=== PATIENT | male | born 1995 | race African-American/Black ===

== ENCOUNTER 2019-05-29 13:01 | Emergency (ER) | payer OTHER ==
[2019-05-29 13:16] VITALS: BP 123/76; PULSE 72; TEMP 99; BMI 34.4
[2019-05-29] MEDS ORDERED: KETOROLAC TROMETHAMINE 15 MG/ML VIAL IM ONE (13:23)
[2019-05-29] MEDS ORDERED: BACLOFEN 10 MG TABLET (FP) PO ONE (13:23)
--- NOTE | 2019-05-29 13:24 | PDOC ---
History of Present Illness - General Chief Complaint: Pain Stated Complaint: RIGHT LOWER BACK PAIN DOWN RIGHT LEG Time Seen by Provider: 05/29/19 13:17 History Source: Patient Exam Limitations: No Limitations - History of Present Illness Initial Comments: 05/29/19 13:18 23 yo M with no past medical hisotry presents to the emergency department with right lower back pain with radiation to the back of the right thigh. Per the patient, he states 3 weeks ago, he lifted a refrigerator on his own and felt a "popping" sensation in his right lower back. Immediately after the lift, he began having right lower back pain. The following day after an 8 hour [address] ride, the pain began radiating to the back of the right thigh. The pain onset occurs when he stands and sits. The patient denies the following: fevers, chills, urinary and bowel incontinence, dysuria, hematuria, ataxia, numbness and weakness in the LE bilaterally, diarrhea, and constipation. Denies loss of sensation in the genital and rectal region. He took motrin at home without relief of pain. Allergies: NKDA Shx: Right shoulder surgery Meds: None Past History - Past Medical History Allergies/Adverse Reactions: Allergies Allergy/AdvReac Type Severity Reaction Status Date / Time No Known Allergies Allergy Unverified 05/29/19 13:06 Home Medications: Ambulatory Orders Naproxen 500 mg PO BID PRN #14 tablet 05/29/19 COPD: No Other medical history: DENIES - Psycho Social/Smoking Cessation Hx Smoking History: Former smoker Have you smoked in the past 12 months: Yes If you are a former smoker, when did you quit?: 2 MONTHS Information on smoking cessation initiated: No Hx Alcohol Use: Yes (RARE) Drug/Substance Use Hx: No Review of Systems - Review of Systems Able to Perform ROS?: Yes Is the patient limited Chinese proficient: No Constitutional: No: Chills, Diaphoresis, Fever, Weakness HEENTM: No: Eye Pain, Ear Pain, Nose Pain, Throat Pain, Mouth Pain Respiratory: No: Cough, Shortness of Breath, Hemoptysis Cardiac (ROS): No: Chest Pain, Edema, Irregular Heart Rate, Lightheadedness, Palpitations ABD/GI: No: Constipated, Diarrhea, Nausea, Rectal Bleeding, Vomiting, Tarry Stools : No: Burning, Dysuria, Hematuria, Incontinence Musculoskeletal: Yes: Back Pain. No: Joint Pain, Neck Pain Integumentary: No: Bruising, Erythema, Pruritus Neurological: No: Headache, Numbness, Tingling, Tremors Psychiatric: No: Change in Appetite Endocrine: No: Unexplained Weight Gain Hematologic/Lymphatic: No: Anemia *Physical Exam - Vital Signs Last Vital Signs Temp Pulse Resp BP Pulse Ox 99 F 72 16 123/76 99 05/29/19 13:04 05/29/19 13:04 05/29/19 13:04 05/29/19 13:04 05/29/19 13:04 - Physical Exam General Appearance: Yes: Nourished, Appropriately Dressed. No: Apparent Distress, Intoxicated HEENT: positive: EOMI, RAPHAEL, Normal Voice, Symmetrical, Hearing Grossly Normal. negative: Pale Conjunctivae, Scleral Icterus (R), Scleral Icterus (L), Muffled /Hoarse voice, Excessive drooling Neck: positive: Trachea midline, Supple. negative: Tender, Lymphadenopathy (R) , Lymphadenopathy (L), Tender lateral, Tender midline Respiratory/Chest: positive: Lungs Clear, Normal Breath Sounds. negative: Chest Tender, Respiratory Distress, Accessory Muscle Use, Rhonchi, Stridor, Wheezing, Hyperresonant Cardiovascular: positive: Regular Rhythm, Regular Rate, S1, S2. negative: Systolic Murmur Gastrointestinal/Abdominal: positive: Normal Bowel Sounds, Flat, Soft. negative : Tender Lymphatic: negative: Adenopathy Musculoskeletal: positive: Normal Inspection, Other (tenderness to palpation in the right superior gluteus. Positive straight leg raise on the right side. ). negative: CVA Tenderness, Vertebral Tenderness Extremity: positive: Normal Capillary Refill, Normal Inspection, Normal Range of Motion. negative: Tender, Swelling, Calf Tenderness Integumentary: positive: Normal Color, Dry, Warm Neurologic: positive: lace finisher II-XII NML intact, Fully Oriented, Alert, Normal Mood/ Affect, Normal Response (bilateral LE 5/5 strength on dorsiflexion, plantar flexion, knee extension and flexion, and hip flexion and extension. No sensory losses. ), Motor Strength 5/5, Other (patellar reflex present bilaterally). negative: Sensory Deficit Medical Decision Making - Medical Decision Making 05/29/19 13:25 23 yo M with no past medical hisotry presents to the emergency department with right lower back pain with radiation to the back of the right thigh. Initial vitals: Initial Vital Signs Temp Pulse Resp BP Pulse Ox 99 F 72 16 123/76 99 05/29/19 13:04 05/29/19 13:04 05/29/19 13:04 05/29/19 13:04 05/29/19 13:04 WOrk up: patient presents with right lower back pain located in the superior gluteus region on the right side consistent with piriformis location without muscle and sensory deficits. no midline tenderness. unlikely to be vertebral fracture or dislocation. will provide the patient with baclofen and toradol and reassess. patient's pain improved with medication. of the patient (currently present ) states she will drive her home. Patient was able to ambulate on their own volition and ambulate without assistance. Dispo: Discharge Discharge - Discharge Information Problems reviewed: Yes Clinical Impression/Diagnosis: Back pain Condition: Stable Disposition: HOME - Admission No - Additional Discharge Information Prescriptions: Naproxen 500 mg PO BID PRN #14 tablet PRN Reason: Pain - Follow up/Referral Referrals: [facility] [place] [Provider Group] - Patient Discharge Instructions Patient Printed Discharge Instructions: DI for Sciatica, DI for Back Pain With Sciatica Additional Instructions: You were seen in the emergency department for the evaluation of your back pain. You improved significantly with baclofen and toradol. We sent a prescription to your pharmacy. Please return to the emergency department if you have worsening symptoms or new concerning symptoms such as inability to urinate, inability to control urine or stool, and inability to walk or decreased muscle function or sensation in your legs. Thank you. Please follow up with your primary medical doctor within 1 week after discharge. Take naproxen twice a day as needed for pain. If you are taking naproxen, do not take advil, motrin, aleve, ibuprofen or any other NSAID medication. Doing so may cause kidney problems or irritation to your stomach. You may take tylenol for additional pain relief but do not exceed 4 grams (4000mg) of tylenol per day. - Post Discharge Activity
--- NOTE | 2019-05-29 13:35 | PDOC ---
Attending Attestation - Resident Resident Name: Bryant Chowdhury - ED Attending Attestation I have performed the following: I have examined & evaluated the patient, The case was reviewed & discussed with the resident, I agree w/resident's findings & plan, Exceptions are as noted
[2019-05-29] MEDS ORDERED: KETOROLAC TROMETHAMINE 15 MG/ML VIAL ONE (13:38)
== END 2019-05-29 14:09 | disposition home or self-care (01) ==
LOC: FER 13:01
PROC: 3E0233Z Introduction of Anti-inflammatory into Muscle, Percutaneous Approach (ICD-10-PCS; principal; 2019-05-29)
DX: M54.5 Low back pain (principal); Z87.891 Personal history of nicotine dependence
CPT/HCPCS: 99282-25; J0475